=== PATIENT | female | born 1955 | race Caucasian/White ===

== ENCOUNTER 2016-08-29 21:07 | Emergency (ER) | payer OTHER ==
[~2016-08-29] VITALS: Ht 165.1 cm; Wt 107.5 kg
[2016-08-29 21:07] VITALS: BP_SYST 119
[2016-08-29] MEDS ORDERED: LOSA25TA11 PO (21:28)
[2016-08-29] MEDS ORDERED: NEU300 PO (21:29)
[2016-08-29] MEDS ORDERED: OMEP20CA10 PO (21:29)
[2016-08-29] MEDS ORDERED: SERT100T PO (21:30)
[2016-08-29] MEDS ORDERED: POTA-118 PO (21:30)
[2016-08-29] MEDS ORDERED: LAM25 PO (21:33)
[2016-08-29] MEDS ORDERED: MORP15TA60 PO (21:34)
[2016-08-29] MEDS ORDERED: MORPHINE SULFATE 10 MG/ML VIAL IM ONE (23:00)
[2016-08-29] MEDS ORDERED: DIPHENHYDRAMINE INJ 50 MG/ML VIAL IM ONE (23:00)
[2016-08-29] MEDS ORDERED: KETOROLAC TROMETHAMINE 30 MG VIAL IM ONE (23:00)
[2016-08-29 23:12] VITALS: BP_SYST 121
== END 2016-08-29 23:12 | disposition home or self-care (01) ==
LOC: SED 21:07
DX: G89.18 Other acute postprocedural pain (principal); E11.9 Type 2 diabetes mellitus without complications; Z98.890 Other specified postprocedural states; Z88.2 Allergy status to sulfonamides; Z79.899 Other long term (current) drug therapy
CPT/HCPCS: 96372; 99284; J1200; J1885; J2270